=== PATIENT | female | born 1955 | race Caucasian/White ===

== ENCOUNTER 2017-07-25 05:58 | Day surgery (SDC) | payer BC, OTHER ==
[2017-07-25] MEDS ORDERED: LACTATED RINGERS 1,000 ML ONE (06:51)
[2017-07-25] MEDS ORDERED: PROPOFOL 200 MG/20 ML VIAL IV ONE (07:00)
[2017-07-25] MEDS ORDERED: LIDOCAINE 1% 10 ML VIAL INJ ONE (07:00)
[2017-07-25] MEDS ORDERED: MIDAZOLAM INJ 2 MG/2 ML VIAL ONE (07:08)
[2017-07-25] MEDS ORDERED: fentaNYL CITRATE INJ 50 MCG/ML AMP ONE (07:08)
--- NOTE | 2017-07-25 08:27 | OP ---
DATE OF PROCEDURE: 07/25/17 PREOPERATIVE DIAGNOSIS: 1. Colon cancer screen. POSTOPERATIVE DIAGNOSIS: 1. Colon cancer screen. 2. Diverticulosis. 3. Redundant colon with numerous sharp turns in the sigmoid and descending colon. PROCEDURE: 1. Colonoscopy. SURGEON: Randall Burns MD. ANESTHESIA: MAC by Esequiel Dior CRNA. ESTIMATED BLOOD LOSS: None. COMPLICATIONS: None apparent. TECHNIQUE: After informed consent was obtained from the patient, the patient was taken to the Endoscopy Suite and put in the left lateral decubitus position. After adequate IV sedation was obtained, a digital rectal exam was performed which revealed decreased sphincter tone and no intraluminal masses. The colonoscope was very slowly and carefully passed through the colon. The colon was very redundant with numerous tight turns and it took a great deal of care and manipulation to navigate through the first half of the colon. There were numerous diverticula noted throughout the sigmoid region. We were able to reach the cecum. The bowel prep was good. The cecum was identified by the presence of ileocecal valve and appendiceal orifice. The scope was then withdrawn slowly over the next 8 to 10 minutes and a good look at the entire colonic mucosa was obtained. There were no polyps or masses identified. The scope was removed. The patient tolerated the procedure well. The patient was transported to the outpatient area in good condition. She will be instructed to consume a high-fiber diet. She will need another colonoscopy in ten years. #[id number] [facility]
[2017-07-25 09:23] VITALS: BP 118/75; TEMP 96.7; O2SAT 100
== END 2017-07-25 09:14 | disposition home or self-care (01) ==
LOC: AMB 05:58
PROVIDERS: ATTEND Family Medicine
DX: Z12.11 Encounter for screening for malignant neoplasm of colon (principal); K57.30 Diverticulosis of large intestine without perforation or abscess without bleeding; Q43.8 Other specified congenital malformations of intestine; I10 Essential (primary) hypertension; I20.9 Angina pectoris, unspecified; M19.90 Unspecified osteoarthritis, unspecified site; F51.04 Psychophysiologic insomnia; E78.00 Pure hypercholesterolemia, unspecified; Z88.6 Allergy status to analgesic agent; Z79.82 Long term (current) use of aspirin; Z79.899 Other long term (current) drug therapy
CPT/HCPCS: 00812; 45378; J2250; J3010; J3490; J7120

== ENCOUNTER → 2020-01-27 | Outpatient (CLI) | payer MEDICARE, OTHER | LOC: GMAJ 15:26 | PROVIDERS: ATTEND Family Medicine | DX: I10 Essential (primary) hypertension (principal); E55.9 Vitamin D deficiency, unspecified; Z79.899 Other long term (current) drug therapy; E78.00 Pure hypercholesterolemia, unspecified ==